=== PATIENT | male | born 2005 | race Caucasian/White ===

== ENCOUNTER 2025-05-17 07:22 | Emergency (ER) | payer MEDICAID ==
[~2025-05-17] VITALS: Ht 175.3 cm; Wt 139.4 kg
[2025-05-17] MEDS ORDERED: QUET50TA24 PO (07:57)
[2025-05-17] MEDS ORDERED: PALI9TAB PO (07:58)
[2025-05-17 08:21] LABS: LEUKOCYTE ESTERASE ,URINE NEGATIVE (Neg); NITRITES, URINE NEGATIVE (Neg); OCCULT BLOOD,URINE NEGATIVE (Neg)
[2025-05-17 08:28] LABS: UA COLLECTION TYPE URINAL
--- NOTE | 2025-05-17 09:09 | RADIOLOGY REPORT ---
EXAM: CT CT ABDOMEN PELVIS HISTORY: Abdominal Pain COMPARISON: None TECHNIQUE: Helical CT images of the abdomen and pelvis were performed without IV contrast. Sagittal a nd coronal reformatted images were obtained. This CT exam was performed using one or more of the foll owing dose reduction techniques: Automated exposure control, adjustment of the mA and/or kv according to patient size, or the use of iterative reconstruction techniques. Radiation Dose: Abdomen/Pelvis: CTDIvol 36.53 mGy, DLP 2152.32 mGy*cm. FINDINGS: CT abdomen: There are hazy ground-glass opacities in the lower lobes. There is mild patchy air trappi ng in the bilateral lower lobes. There is a trace right pleural effusion. The heart is not enlarged. The liver is diffusely fatty density and measures 19.5 cm longitudinal. The spleen measures 16 cm l ongitudinal. The noncontrast gallbladder, pancreas, kidneys, and adrenal glands are unremarkable. No abdominal aortic aneurysm. There is a left upper quadrant splenule. There are mildly prominent centra l mesenteric lymph nodes. CT pelvis: No abnormal bowel dilatation, free air, or free fluid. The appendix and urinary bladder ar e unremarkable. IMPRESSION: 1. Bilateral lung base ground-glass opacities and patchy air trapping are nonspecific, related to sma ll airways disease, CHF, or atypical pneumonia. Additionally, there is a trace right pleural effusio n, more suggestive of pneumonia or mild CHF. 2. Hepatosplenomegaly and hepatic steatosis. 3. Mildly prominent central mesenteric lymph nodes may be incidental, reactive, or related to mesente dre adenitis. 4. No evidence of bowel obstruction, acute appendicitis, or other acute process in the abdomen or pel vis.
--- NOTE | 2025-05-17 10:34 | RADIOLOGY REPORT ---
EXAM: DI CHEST,SINGLE VIEW Indication: CP Technique: Single frontal view of the chest was obtained Comparison: None FINDINGS: Lines and Tubes: None Lungs: No focal consolidation. Pleura: No effusion. No pneumothorax. Cardiomediastinal contours: Unremarkable Bones: No acute osseous abnormality. IMPRESSION: No acute cardiopulmonary disease.
[2025-05-17 10:36] LABS: MEAN PLATELET VOLUME 7.2 FL (7.4-10.4); RED CELL DISTRIBUTION WIDTH 13.9 % (11.5-14.5)
--- NOTE | 2025-05-17 10:52 | ELECTROCARDIOGRAPH REPORT ---
[facility] Test Date: 2025-05-17 Test Time: 10:49:07 Pat Name: RAMSEY FARRIS Department: EMERGENCY ROOM Room: Gender: M Driller Helper: : 2005 Requested By: DEENA JAMIL Order Number: [id number] Reading MD: Measurements Intervals [place] Rate: 84 P: 25 PA: 104 QRS: 61 QRSD: 118 T: -16 QT: 372 QTc: 440 Interpretive Statements Sinus rhythm Short PA interval Nonspecific intraventricular conduction delay Borderline repolarization abnormality Please click the below link to view image of tracing.
[2025-05-17 11:04] LABS: CREATININE 0.83 MG/DL (0.60-1.10); TOTAL CARBON DIOXIDE 27.3 MMOL/L (24-32); eCRCL 141 ML/MIN; eGFR > 90 ML/MIN
[2025-05-17 11:11] LABS: PRO BRAIN NATRIURETIC PEPTIDE < 30 PG/ML (0-125)
--- NOTE | 2025-05-17 11:58 | Physician Documentation ---
History of Present Illness ~ Chief Complaint: See Chief Complaint Stated Complaint: BODY PAIN,URINARY PROBLEMS Time Seen by MD: 07:56 OK to notify your PCP?: Yes Mode of Arrival: POV, Ambulatory Exam Limitations: other (Patient is nonverbal) HPI Chief Complaint: Abdominal pain Caveat: Autism, nonverbal Independent Historians: Mother History of Present Illness: Patient is a 19-year-old man brought in by mother because of abdominal pain that began possibly Thursday. Patient has been eating and drinking less. No fever. Mother is found him to be on his hands and knees on his bed appearing to be in pain. Mother has noted that he goes of the restroom frequently to urinate but little comes out. No diarrhea. Patient has had a cough for a couple of weeks. The cough has not been observed here during my evaluation. Review of systems: All systems were reviewed and are negative except for what is indicated in the history of present illness. Past Medical History: Autism Past Surgical History: None Social History: Cared for at home by mother and father. Medications: Reviewed as documented Nursing Notes Allergies: Reviewed as documented in Nursing Notes Medication Reconciliation Allergies: Coded Allergies: No Known Allergies (Unverified , 05/17/25) Scheduled Paliperidone (Invega), 1 TAB PO QAM, (Reported) Quetiapine Fumarate (Quetiapine Fumarate), 1 TAB PO HS, (Reported) Past Medical History Smoking Status: Never smoker Review of Systems Unable to obtain complete ROS: other (Autism, nonverbal) Physical Exam Vital Signs: RN Vital Signs have been reviewed: Yes, Temperature: 97.9, Source: Oral, Heart Rate: 86, Respiratory Rate: 13, BP: 131/73, Pulse Oximetry: 96, Weight: 139.400 Oxygen Flow Rate: 0 Pulse Oximetry Reflects: adequate oxygenation Physical Exam General Appearance: No distress HEENT: Normal OP, moist oral mucosa, PERRL, EOMI Neck: supple, normal ROM, trachea midline Pulmonary: No respiratory distress, CTA, BS equal Cardiac: RRR, no murmur, rub or gallop, GI: nondistended, soft, nontender, normal bowel sounds, no guarding, no rebound Extremities: normal ROM, no swelling, non-tender Skin: intact, dry, warm, no rashes Neuro: Awake and alert, mental status at baseline per mother, moves all extremities Progress Results/Orders Results/Orders Orders - DEENA JAMIL MD Ct Abdomen Pelvis (05/17/25 08:17) Monitor (05/17/25 07:56) Nothing By Mouth (05/17/25 Dinner) * Bladder Scan / Post Residual (05/17/25 09:09) Chest,Single View (05/17/25 10:08) Hs Troponin I W Calculations (05/17/25 12:08) Hs Troponin I W Calculations (05/17/25 13:08) Completed Orders - DEENA JAMIL MD Urinalysis, Cult If Indicated (05/17/25 07:56) Ct Abdomen Pelvis (05/17/25 08:17) Cbc/Diff (05/17/25 10:08) MG (05/17/25 10:08) Electrocardiogram (05/17/25 10:08) PBNP (05/17/25 10:08) Chest,Single View (05/17/25 10:08) Hs Troponin I W Calculations (05/17/25 10:08) CMP (05/17/25 10:08) Lipase (05/17/25 10:08) Vital Signs 05/17/25 05/17/25 05/17/25 05/17/25 07:33 07:46 07:55 09:12 Temp 97.9 97.9 97.9 Pulse 98 88 88 Resp 16 16 14 16 B/P (MAP) 144/75 129/79 (96) 125/75 (92) Pulse Ox 97 99 98 O2 Flow Rate 0 0 0 05/17/25 11:15 Temp 97.9 Pulse 86 Resp 13 B/P (MAP) 131/73 (92) Pulse Ox 96 O2 Flow Rate 0 Laboratory Tests Test 05/17/25 07:59 05/17/25 10:28 Urine Specimen Description Urinal Urine Color Yellow Urine Clarity Clear Urine pH 6.0 Urine Specific [place] >=1.030 Urine Protein Negative Urine Glucose (UA) Negative Urine Ketones Trace H Urine Occult Blood Negative Urine Nitrite Negative Urine Bilirubin Negative Urine Urobilinogen 0.2 Urine Leukocyte Esterase Negative Urine Culture Indicated Not ind Volume Urine Centrifuged 10 ml Urine Comment White Blood Count 12.0 H Red Blood Count 5.79 Hemoglobin 16.8 Hematocrit 49.1 Mean Corpuscular Volume 84.9 Mean Corpuscular Hemoglobin 29.0 Mean Corpuscular Hemoglobin Concent 34.1 Red Cell Distribution Width 13.9 Platelet Count 357 Mean Platelet Volume 7.2 L Neutrophils (%) (Auto) 64.6 Lymphocytes (%) (Auto) 24.5 Monocytes (%) (Auto) 7.6 Eosinophils (%) (Auto) 2.9 Basophils (%) (Auto) 0.4 Neutrophils # (Auto) 7.8 H Lymphocytes # (Auto) 3.0 Monocytes # (Auto) 0.9 Eosinophils # (Auto) 0.4 Basophils # (Auto) 0.0 CBC Comment Sodium Level 144 Potassium Level 4.1 Chloride Level 105 Carbon Dioxide Level 27.3 Anion Gap 12 Blood Urea Nitrogen 13 Creatinine 0.83 Estimated GFR/1.73 m2 > 90 BUN/Creatinine Ratio 15.7 Glucose Level 94 Calcium Level 9.4 Magnesium Level 2.3 Total Bilirubin 0.5 Aspartate Amino Transf (AST/SGOT) 41 H Alanine Aminotransferase (ALT/SGPT) 80 H Alkaline Phosphatase 68 Troponin I High Sensitivity < 4 L Troponin I High Sens Percent Delta Troponin I Hi Sens Absolute Change Pro-B-Type Natriuretic Peptide < 30 Total Protein 8.1 Albumin 4.4 Globulin 3.7 Albumin/Globulin Ratio 1.2 Lipase 25 Chemistry Comments Medical Decision Making Additional info obtained from: family Findings Differential diagnosis includes but is not limited to: Urinary tract infection, pyelonephritis, acute appendicitis, cholecystitis, pancreatitis, gastritis, mesenteric adenitis, pneumonia, dehydration, electrolyte abnormalities EKG independent interpretation: Performed at 10:49 a.m.. Normal sinus rhythm, heart rate 84, normal axis, short [place], nonspecific IVCD Chest x-ray, single view, indication: Cough Independent interpretation: Lungs are clear, normal mediastinum, normal cardiac silhouette. No acute cardiopulmonary process. Laboratory data independent interpretation: CBC: Mild leukocytosis 12.9, otherwise unremarkable CMP: Unremarkable Urinalysis: Unremarkable Emergency department course/medical decision-making: Patient presents with what appears to be abdominal pain. There was no evidence of acute appendicitis or cholecystitis. No evidence of pancreatitis. Patient's lab work is unremarkable except for a mild leukocytosis. CTA of the abdomen and pelvis was performed that showed some concern for possible CHF versus pneumonia in the lower lungs. However that does not appear to be the case. Patient has a normal pro BNP. Chest x-ray is also negative for pneumonia or congestive heart failure. Although the patient does have a mildly elevated white blood cell count which could be signs of infection there was no evidence of an intra- abdominal infection requiring surgery. Patient may have mesenteric adenitis. Incidental finding of hepatosplenomegaly is found along with the hepato steatosis which could cause pain. Patient is going to follow up with his primary care doctor for further outpatient workup of this. Patient does not meet any admission criteria. There was no evidence of a medical or surgical emergency. Test results, treatment plan and all of the above have been discussed with the mother. Antibiotics are not going to be provided at this time. Departure Time of Disposition: 11:59 Disposition: 01 HOME / SELF CARE / HOMELESS Impression: Primary Impression: Abdominal pain of unknown cause Additional Impressions: Possible mesenteric adenitis Hepatosplenomegaly Hepatic steatosis Condition: Stable Discharge Instructions: Abdominal Pain, Adult, [id number], Fatty Liver Disease, Mesenteric Adenitis, Adult Additional Instructions: FOLLOW UP WITH YOUR PRIMARY CARE DOCTOR FOR FURTHER OUTPATIENT WORKUP AND EVALUATION OF THE HEPATOSPLENOMEGALY. ANTIBIOTICS ARE NOT THOUGHT TO BE NEEDED AT THIS TIME. RETURN TO THE EMERGENCY DEPARTMENT IF YOUR SYMPTOMS WORSEN OR IF YOU DEVELOP A FEVER. Education Educated: Family Educated regarding: diagnosis, treatment, need for follow up Signature Scribe Signature: NO SCRIBE Attestation: NO SCRIBE DEENA JAMIL MD May 17, 2025 11:58
[2025-05-17 12:28] VITALS: BP 129/80; PULSE 101; RESP 18; TEMP 97.9; O2SAT 98
== END 2025-05-17 12:30 | disposition home or self-care (01) ==
LOC: ER 07:23
DX: R16.0 Hepatomegaly, not elsewhere classified (principal); K76.0 Fatty (change of) liver, not elsewhere classified; R06.02 Shortness of breath; Z79.899 Other long term (current) drug therapy
CPT/HCPCS: 36415; 71045; 74176; 80053; 81003; 83690; 83735; 83880; 84484; 85025; 93005; 99285

== ENCOUNTER 2025-06-15 18:25 | Emergency (ER) | payer MEDICAID ==
[~2025-06-15] VITALS: Ht 177.8 cm; Wt 139.0 kg
[~2025-06-15 18:25] MED LIST: PALI9TAB PO; QUET50TA24 PO
[2025-06-15] MEDS: diazepam inj 5 MG/ML inj. IV ONE (18:52)
--- NOTE | 2025-06-15 19:04 | Physician Documentation ---
History of Present Illness ~ Stated Complaint: MH Time Seen by MD: 18:46 HPI Patient presents to the emergency room sent from intermediate a facility for violent behavior that has been progressive over the past day. Caregiver at bedside reports that he was at some facility today and was not ready to leave with the other people in his group and therefore began having behavioral issues that began escalating over the course of a proximally 3 hours that a thorough ideas needed to be called. Took six EMS to restrain patient along with sedation medications as well. Patient is nonverbal autistic Medication Reconciliation Allergies: Coded Allergies: No Known Allergies (Unverified , 05/17/25) Scheduled Paliperidone (Invega), 1 TAB PO QAM, (Reported) Quetiapine Fumarate (Quetiapine Fumarate), 1 TAB PO HS, (Reported) Scheduled PRN Clonazepam (Clonazepam), 1 TAB PO BID PRN for for anxiety/agitation, (Reported) Review of Systems ROS Review of systems limited secondary to patient's clinical condition Physical Exam Vital Signs: Temperature: 99.8, Source: Axillary, Heart Rate: 109, Respiratory Rate: 18, BP: 136/88, Pulse Oximetry: 97, Weight: 139.000 Oxygen Flow Rate: 0 Physical Exam General: Patient is awake, screaming in restraints Head: Normocephalic and atraumatic. Eyes: Conjunctival normal. EOMI. PERRL. ENT: Mucous membranes moist. Neck: Supple, trachea is midline. Chest: Clear to auscultation bilaterally without rales, rhonchi, or wheezes. There is no accessory muscle use or retractions. Cardiac: Tachycardic and regular without murmurs, gallops, or rubs. Abd: Soft, nondistended, nontender, with normoactive bowel sounds. No guarding, rebound, or rigidity. Psych: Agitated Neuro: Cranial nerves II-XII grossly intact. No focal neuro deficits. Progress Results/Orders Results/Orders Orders - ISIAH MENA MD Behavioral Restraints (06/15/25 ) Med Rec (06/15/25 19:04) Close Observation Level (06/15/25 19:04) Covid19 Binax Poc Result Entry (06/15/25 19:04) Substance Use Navigator (06/15/25 19:04) Completed Orders - ISIAH MENA MD Diazepam Inj (Valium Inj) (06/15/25 18:50) Cbc/Diff (06/15/25 19:04) Urinalysis (06/15/25 19:04) Drug Screen, Urine (06/15/25 19:04) Ethanol (06/15/25 19:04) TSH (06/15/25 19:04) BMP (06/15/25 19:04) Olanzapine Im (Zyprexa I.M. Im On (06/15/25 19:30) Diphenhydramine Inj (Benadryl Inj.) (06/15/25 19:30) Midazolam 5 Mg/Ml 2ml Inj (Versed 5 Mg/M (06/15/25 19:35) Vital Signs 06/15/25 06/15/25 06/15/25 06/15/25 18:31 18:52 19:15 19:30 Temp 99.8 99.8 99.8 Pulse 109 Resp 18 18 B/P (MAP) 136/88 Pulse Ox 97 O2 Flow Rate 0 0 0 06/15/25 06/15/25 06/15/25 06/15/25 19:45 19:59 20:00 20:00 Temp 99.8 98.0 98.0 98.0 Pulse 116 Resp 18 B/P (MAP) 152/97 (115) Pulse Ox 96 O2 Flow Rate 0 0 0 0 06/15/25 06/15/25 06/15/25 06/15/25 20:15 20:30 20:45 21:00 Temp 98.0 98.0 98.0 98.0 O2 Flow Rate 0 0 0 0 06/15/25 06/15/25 06/16/25 06/16/25 21:15 22:00 00:00 01:00 Temp 98.0 98.8 98.9 98.9 Pulse 90 88 90 Resp 18 18 20 B/P (MAP) 109/59 (76) 121/86 (98) 99/61 (74) Pulse Ox 95 95 94 O2 Flow Rate 0 0 0 0 06/16/25 06/16/25 06/16/25 03:00 05:01 05:44 Temp 98.0 98.0 98.0 Pulse 86 84 88 Resp 18 20 16 B/P (MAP) 105/54 (71) 109/66 (80) Pulse Ox 96 95 98 O2 Flow Rate 0 0 Laboratory Tests Test 06/15/25 19:13 06/15/25 19:17 06/15/25 21:18 SARS-CoV-2 Antigen (Rapid) Negative White Blood Count 14.7 H Red Blood Count 5.51 Hemoglobin 15.9 Hematocrit 46.7 Mean Corpuscular Volume 84.8 Mean Corpuscular Hemoglobin 28.8 Mean Corpuscular Hemoglobin Concent 34.0 Red Cell Distribution Width 13.6 Platelet Count 348 Mean Platelet Volume 7.2 L Neutrophils (%) (Auto) 76.7 H Lymphocytes (%) (Auto) 15.2 L Monocytes (%) (Auto) 6.7 Eosinophils (%) (Auto) 1.2 Basophils (%) (Auto) 0.2 Neutrophils # (Auto) 11.2 H Lymphocytes # (Auto) 2.2 Monocytes # (Auto) 1.0 H Eosinophils # (Auto) 0.2 Basophils # (Auto) 0.0 CBC Comment Sodium Level 144 Potassium Level 3.4 L Chloride Level 110 H Carbon Dioxide Level 25.2 Anion Gap 9 Blood Urea Nitrogen 15 Creatinine 0.85 Estimated GFR/1.73 m2 > 90 BUN/Creatinine Ratio 17.6 Glucose Level 91 Calcium Level 8.6 Albumin 4.0 Thyroid Stimulating Hormone (TSH) 0.29 L Chemistry Comments Ethyl Alcohol Level < 10 Urine Specimen Description Non-specified Urine Color Yellow Urine Clarity Clear Urine pH 6.0 Urine Specific [place] >=1.030 Urine Protein Negative Urine Glucose (UA) Negative Urine Ketones Trace H Urine Occult Blood Negative Urine Nitrite Negative Urine Bilirubin Negative Urine Urobilinogen 0.2 Urine Leukocyte Esterase Negative Volume Urine Centrifuged 10 ml Urine Comment Urine Opiates Screen Negative Urine Methadone Screen Negative Urine Fentanyl Screen Negative Urine Barbiturates Screen Negative Urine Phencyclidine Screen Negative Urine Amphetamines Screen Negative Urine Benzodiazepines Screen Positive Urine Cocaine Screen Negative Urine Cannabinoids Screen Negative Drug Screen Comment Medical Decision Making Findings Patient presents to the emergency room and extreme agitation requiring sedation. Patient finally settled down. It was reported that he has not slept very much and his mother it was content with him sleeping for the time being. I no longer believe the patient is a danger to anyone else. I do not feel he requires 1799 Departure Disposition: HOME / SELF CARE / HOMELESS Impression: Primary Impression: Agitation requiring sedation protocol Condition: Improved Discharge Instructions: General Discharge Instructions Referrals: NO PRIMARY CARE PROVIDER (PCP) Signature Scribe Signature: No scribe Attestation: The note accurately reflects work and decisions made by me.Isiah Mena MD 06/16/25 05:32 ISIAH MENA MD Jun 15, 2025 19:04
[2025-06-15 19:25] LABS: MEAN PLATELET VOLUME 7.2 FL (7.4-10.4); RED CELL DISTRIBUTION WIDTH 13.6 % (11.5-14.5)
[2025-06-15] MEDS: OLANZapine **IM** 10 mg inj. IM ONE (19:41)
[2025-06-15 19:48] LABS: CREATININE 0.85 MG/DL (0.60-1.10); ETHANOL < 10 MG/DL (<10); TOTAL CARBON DIOXIDE 25.2 MMOL/L (24-32); eCRCL 142 ML/MIN; eGFR > 90 ML/MIN
[2025-06-15] MEDS ORDERED: CLON-567 PO (19:59)
[2025-06-15] MEDS: MIDAZolam 5mg/ml 2ml vial IV ONE (20:20)
[2025-06-15 21:35] LABS: LEUKOCYTE ESTERASE ,URINE NEGATIVE (Neg); NITRITES, URINE NEGATIVE (Neg); OCCULT BLOOD,URINE NEGATIVE (Neg)
[2025-06-15 21:42] LABS: UA COLLECTION TYPE NON-SPECIFIED
[2025-06-15 21:43] LABS: URINE AMPHETAMINE SCREEN NEGATIVE (Neg); URINE BARBITUATE SCREEN NEGATIVE (Neg); URINE BENZODIAZEPINES SCREEN POSITIVE (Neg); URINE CANNABINOID SCREEN NEGATIVE (Neg); URINE COCAINE SCREEN NEGATIVE (Neg); URINE METHADONE SCREEN NEGATIVE (Neg); URINE OPIATE SCREEN NEGATIVE (Neg); URINE PHENCYCLIDINE SCREEN NEGATIVE (Neg)
[2025-06-16 05:01] VITALS: BP 109/66
[2025-06-16 05:44] VITALS: PULSE 88; RESP 16; TEMP 98; O2SAT 98
== END 2025-06-16 05:57 | disposition home or self-care (01) ==
LOC: ER 18:25
DX: R45.1 Restlessness and agitation (principal); Z20.822 Contact with and (suspected) exposure to COVID-19; Z79.899 Other long term (current) drug therapy
CPT/HCPCS: 36415; 80048; 80305; 80320; 81003; 84443; 85025; 87811; 96372; 96374; 96375; 99285; J1200; J2250; J3360; J3490; J7030